=== PATIENT | male | born 1950 | race Caucasian/White ===

== ENCOUNTER → 2017-07-04 | Outpatient (CLI) | payer OTHER ==
[2017-07-04 13:58] LABS: ADD MAN DIFF? NO
[2017-07-04] MEDS: LIDOCAINE 1% (MDV) 20 ML INJ (14:15)
[2017-07-04 14:21] LABS: C-REACTIVE PROTEIN 3.2 mg/dl (0.0-0.9)
[2017-07-04 14:49] LABS: WHITE BLOOD COUNT 8.9 10^3/ul (4.8-10.8)
[2017-07-04 14:49] LABS: BASOPHILS % 0.5 % (0.0-2.0); EOSINOPHILS # 0.1 10^3/ul (0.0-0.5); EOSINOPHILS % 1.5 % (0.0-7.0); HEMATOCRIT 46.3 % (42.0-52.0); HEMOGLOBIN 15.7 g/dl (14.0-18.0); LYMPHOCYTES # 1.6 10^3/ul (0.8-2.9); LYMPHOCYTES % 18.2 % (15.0-51.0); MEAN CORPUSCULAR HEMOGLOBIN 30.4 pg (29.0-33.0); MEAN CORPUSCULAR HGB CONC 33.9 g/dl (32.0-37.0); MEAN CORPUSCULAR VOLUME 89.7 fl (82.0-101.0); MEAN PLATELET VOLUME 10.6 fl (7.4-10.4); MONOCYTE # 0.7 10^3/ul (0.3-0.9); MONOCYTES % 7.4 % (0.0-11.0); NEUTROPHIL # 6.4 10^3/ul (1.6-7.5); NEUTROPHILS % 71.9 % (39.0-77.0); PLATELET COUNT 387 10^3/UL (140-415); RED BLOOD COUNT 5.16 10^6/ul (4.70-6.10); RED CELL DISTRIBUTION WIDTH 13.4 % (11.5-14.5)
[2017-07-04 15:01] LABS: PROSTATE SPECIFIC ANTIGEN 1.5 ng/ml (0.0-4.0)
[2017-07-04 15:42] LABS: ERYTHROCYTE SEDIMENTATION RATE 33 mm/Hr (0-20)
[2017-07-05 12:06] LABS: ESTRADIOL 21 pg/mL (< OR = 39)
== END | disposition home or self-care (01) ==
LOC: U/S 13:16
DX: M17.11 Unilateral primary osteoarthritis, right knee (principal)
CPT/HCPCS: 82670; 84153; 84154; 84403; 85025; 85651; 86140; 87070; 87075; 87102; 87116